=== PATIENT | female | born 1990 | race Caucasian/White ===

== ENCOUNTER 2025-01-26 13:45 | Inpatient (IN) | payer OTHER ==
[~2025-01-26] VITALS: Ht 167.6 cm; Wt 84.8 kg
[~2025-01-26 13:45] MED LIST: PRENATAL TABLE1 EAC4 PO
[2025-01-30 15:31] VITALS: BP 122/75
[2025-01-30] MEDS ORDERED: OXYTOCIN 500 ML IV SCH (16:00)
[2025-01-30] MEDS ORDERED: RINGERS SOLUTION,LACTATED 1,000 ML IV SCH (16:00)
[2025-01-30 16:50] LABS: BASO % 0.3 % (0.1-1.2); EOS # 0.16 (0.04-0.54); EOS % 1.3 % (0.7-7.0); LYMPH # 2.79 (1.18-3.74); LYMPH % 22.3 % (19.3-53.1); MEAN PLATELET VOLUME 12.10 fl (9.4-12.4); MONO # 0.71 (0.24-0.82); MONO % 5.7 % (4.7-12.5); NEUT # 8.78 (1.56-6.13); NEUT % 70.0 % (34.0-71.1); RED CELL DISTRIBUTION WIDTH 13.3 % (11.6-14.4)
[2025-01-30 17:10] LABS: INR < 0.93
[2025-01-30 17:14] LABS: ALT/SGPT 11.0 U/L (12-78); AST/SGOT 14.0 U/L (15-37); BILIRUBIN TOTAL 0.95 mg/dL (0.3-1.2); BUN CREA RATIO 18.0 (7.0-25.0); CREATININE SERUM 0.57 mg/dL (0.55-1.02); GFR 120.7; GLOBULINA 3.9 G/DL (2.4-3.5); GLUCOSE FASTING 69.0 mg/dL (65-100); OSMOLALITY SERUM 279.0 MOSM/KG (275-295)
[2025-01-30 19:36] VITALS: BP 122/68
[2025-01-30 23:35] VITALS: BP 131/62
[2025-01-31] VITALS (9 sets, daily range): BP systolic 100–138; BP diastolic 51–64
[2025-01-31] MEDS ORDERED: OXYTOCIN 1,000 ML IV SCH (01:30)
[2025-01-31] MEDS ORDERED: ACETAMINOPHEN WITH CODEINE 1 UDTAB TABLET PO PRN (01:30)
[2025-01-31] MEDS ORDERED: ERYTHROMYCIN BASE OPHT 1GM EACH TUBE OP ONE (02:30)
[2025-01-31] MEDS ORDERED: LIDOCAINE HCL 1% 10ML VIAL IJ ONE (02:30)
[2025-01-31] MEDS ORDERED: CHLORHEXIDINE GLUCONATE 120 ML BOTTLE TOP ONE (02:30)
[2025-02-01] VITALS: BP 101/66
[2025-02-01 08:32] VITALS: BP 98/63
== END 2025-02-01 14:18 | disposition home or self-care (01) | DRG 807 ==
LOC: LDR 01-30 15:26 → OB/GYN 01-31 03:52 → LDR 02-12 13:45
PROVIDERS: Obstetrics & Gynecology; ADMIT Obstetrics & Gynecology Maternal & Fetal Medicine; ATTEND Obstetrics & Gynecology Maternal & Fetal Medicine
PROC: 10E0XZZ Delivery of Products of Conception, External Approach (ICD-10-PCS; principal; 2025-01-30)
PROC: 0W8NXZZ Division of Female Perineum, External Approach (ICD-10-PCS; 2025-01-30)
PROC: 4A1HXCZ Monitoring of Products of Conception, Cardiac Rate, External Approach (ICD-10-PCS; 2025-01-30)
DX: O80 Encounter for full-term uncomplicated delivery (principal); Z37.0 Single live birth; Z3A.38 38 weeks gestation of pregnancy